=== PATIENT | female | born 1945 | race African-American/Black ===

== ENCOUNTER 2022-01-21 09:13 | Emergency (ER) | payer OTHER ==
[~2022-01-21] VITALS: Ht 160 cm; Wt 78.9 kg
[~2022-01-21 09:13] MED LIST: LEVOTHYROXINE 0.15MG PO; PREDNISONE 20 M20 MG PO; SINGULAIR 10 MG10 M1 PO
[2022-01-21 09:15] VITALS: BP 157/81
== END 2022-01-21 10:27 | disposition home or self-care (01) ==
LOC: ER 09:13
DX: S29.011A Strain of muscle and tendon of front wall of thorax, initial encounter (principal); E78.00 Pure hypercholesterolemia, unspecified; E03.9 Hypothyroidism, unspecified; W18.49XA Other slipping, tripping and stumbling without falling, initial encounter; Y93.89 Activity, other specified; Y92.89 Other specified places as the place of occurrence of the external cause; Y99.8 Other external cause status